=== PATIENT | female | born 1990 | race Caucasian/White ===

== ENCOUNTER 2021-03-02 12:48 | Emergency (ER) | payer MEDICAID, SELFPAY ==
--- NOTE | ~2021-03-02 | CT_ITS ---
EXAMINATION: CT CHEST WITHOUT CONTRAST CLINICAL INFORMATION: Shortness of breath. Chest tightness. COMPARISON: Chest x-ray earlier today and 04/02/2012 TECHNIQUE: Multidetector volumetric CT imaging of the chest was done. Axial MIP volume rendering provided. Sagittal and coronal reformatted images were obtained. This CT examination was performed using dose optimization techniques as appropriate, variously including the following: *Automated exposure control *Adjustment of mA and/or kV according to patient size (this includes techniques or standardized protocols for targeted exams where dose is matched to indication/reason for exam; i.e. extremities or head) *Use of iterative reconstruction technique DLP: 291 mGy-cm FINDINGS: The heart is normal in size. There is no pericardial effusion. Normal caliber thoracic aorta. No gross mediastinal lymphadenopathy appreciated on today's noncontrast imaging. No enlarged axillary lymph nodes. Central airways are patent. Lungs are well aerated. Mild biapical architectural distortion/scarring is appreciated. An approximately 3 x 4.2 cm subsolid density is noted along the posterior pleural surface of the right lower lobe, nonspecific. A 5 mm nodular density is noted abutting the right major fissure, nonspecific but statistically a node. No pleural effusion or pneumothorax. Visualized portions of the upper abdomen demonstrate splenomegaly with the spleen measuring approximately 14 cm in maximum AP dimension. No acute osseous abnormality. CT/CT chest wo con IMPRESSION: 1. An approximately 3 x 4.2 cm subsolid density is noted along the posterior pleural surface of the right lower lobe. This is a nonspecific finding. Differential includes, but is not limited to, pulmonary infarction and pulmonary hemorrhage. This may also represent a localized infectious process. Clinical correlation is recommended. Follow-up imaging suggested status post treatment to ensure resolution. If finding persist, PET/CT may be warranted. 2. Mild splenomegaly, incompletely visualized. Fleischner guidelines were followed.
--- NOTE | ~2021-03-02 | XR_ITS ---
EXAMINATION: XR CHEST CLINICAL INFORMATION: Shortness of breath COMPARISON: Previous chest x-ray most recent March 2012 TECHNIQUE: Frontal view of the chest was obtained. FINDINGS: The cardiac and mediastinal contours are normal. The lung volumes are low. There are increased hilar markings. This may be related to low lung volumes. The lungs are otherwise clear. There is no pleural effusion or pneumothorax. Bony structures are unremarkable. XR/XR chest 1V IMPRESSION: Low lung volumes.
[2021-03-02 13:56] VITALS: BP 112/78; PULSE 97; RESP 18; TEMP 36.5; O2SAT 100; BMI 33.0
--- NOTE | 2021-03-02 14:03 | ECG_ITS ---
Test Reason : sob Blood Pressure : / mmHG Vent. Rate : 094 BPM Atrial Rate : 094 BPM P-R Int : 126 ms QRS Dur : 084 ms QT Int : 364 ms P-R-T Axes : 053 049 037 degrees QTc Int : 455 ms Normal sinus rhythm Normal ECG When compared with ECG of 08-SEP-2010 20:08, No significant change was found Referred By: Generic ED Physician Electronically Signed By:Nadeem Vaughn
[2021-03-02 14:37] LABS: MANUAL DIFF FLAG NO
[2021-03-02 14:39] LABS: Basophils Percent Auto 0.3 % (0-2); Eosinophils Percent Auto 0.3 % (0-4); Hematocrit 31.4 % (37.0-47.0); Hemoglobin 11.1 g/dl (12.0-16.0); Imm Gran Abs Auto 0.11 X10*3/uL (0.00-0.03); Imm Gran Pct Auto 1.2 % (0.0-0.4); Lymphocytes Absolute Auto 2.1 X10*3/uL (1.2-4.9); Lymphocytes Percent Auto 23.4 % (20-40); Mean Corpuscular HGB Conc 35.4 g/dl (31.0-35.0); Mean Corpuscular Hemoglobin 30.1 pg (27.0-33.0); Mean Corpuscular Volume 85.1 fL (80.0-98.0); Mean Platelet Volume 9.9 fL (9.4-12.3); Monocytes Absolute Auto 0.5 X10*3/uL (0.1-1.2); Monocytes Percent Auto 5.7 % (2-11); Neutrophils Absolute Auto 6.2 x10*3/uL (2.0-8.3); Neutrophils Percent Auto 69.1 % (45-73); Platelet Count 239 X10*3/uL (160-400); Red Blood Count 3.69 X10*6/uL (4.20-5.50); Red Cell Distribution Width 17.5 % (11.0-16.0); White Blood Count 8.9 X10*3/uL (4.8-10.8)
[2021-03-02 14:50] LABS: COVID-19 Test Positive (Negative)
[2021-03-02 14:53] LABS: Anion Gap 11 (12-20); Blood Urea Nitrogen 10 mg/dL (9-16); Calcium 9.4 mg/dL (8.4-10.2); Carbon Dioxide 24 mmol/L (22-29); Chloride 111 mmol/L (96-108); Creatinine Clr Calc Pharmacy 115.3; Estimated Glomerular Filt Rate > 60; Glucose Random 91 mg/dL (60-115); Sodium 142 mmol/L (135-145)
--- NOTE | 2021-03-02 18:26 | ED_ITS ---
HPI - URI/Sore Throat General Chief Complaint: Upper Respiratory Symptoms Stated Complaint: COVID+ dif breathing Time Seen by Provider: 03/02/21 15:48 Source: patient Mode of arrival: ambulatory Limitations: no limitations History of Present Illness HPI Narrative: 30-year-old female on vaccinated for COVID with a history of reactive airway disease here with reports of chest tightness, cough and shortness of breath. Patient tells me 1 week ago she started to develop symptoms of COVID. She tested on Monday positive. Over the weekend she reports of chest tightness and cough with feeling like she can not catch her breath. She has been using her albuterol MDI with continued symptoms. Her cough is nonproductive. She has not had a fever since Monday. No leg swelling or pain. No vomiting, diarrhea or abdominal pain. Related Data Previous Rx's Medication Instructions Recorded doxycycline monohydrate 100 mg 100 mg PO BID #20 tab 03/02/21 tablet Allergies Allergy/AdvReac Type Severity Reaction Status Date / Time pomegranate Allergy Mild HIVES, Unverified 10/31/19 18:10 ITCHY Review of Systems Review of Systems: Yes all other systems are reviewed and are negative Constitutional: Constitutional: Reports no additional constitutional complaints, Denies body ache(s), Denies chills, Denies fever(s), Denies headache(s) and Denies weakness Eyes: Eyes: Reports no additional eye complaints and Denies change in vision ENT: Reports system reviewed and no additional complaints, except as documented, Denies dizziness, Denies headache(s), Denies nasal congestion, Denies nasal discharge and Denies neck pain Cardiovascular: Cardiovascular: Reports no additional cardiovascular complaints, Reports chest pain, Denies leg edema and Reports dyspnea Respiratory: Respiratory: Reports no additional respiratory complaints, Reports cough and Reports dyspnea Gastrointestinal: Gastrointestinal: Reports no additional gastrointestinal complaints, Denies abdominal pain, Denies diarrhea, Denies nausea and Denies vomiting Genitourinary: Genitourinary: Reports no additional female genitourinary complaints and Denies urinary incontinence Musculoskeletal: Musculoskeletal: Reports no additional musculoskeletal complaints, Denies back pain, Denies arthralgias, Denies joint swelling, Denies neck pain, Denies numbness and Denies tingling Integumentary/Breasts: Skin/Breast: Reports system reviewed and no additional complaints, except as docu and Denies rash Neurologic: Reports system reviewed and no additional complaints, except as documented, Denies Abnormal speech present, Denies dizziness, Denies headache(s), Denies numbness, Denies tingling and Denies weakness PMFSH Past Medical History Attestation statement: The following information was validated with the patient. Source: old records reviewed and nursing notes reviewed Social History Social History Advance Directives: No Advance Directives Information Provided: No Patient : No Physical Exam Vital Signs: Vital Signs: Last Vital Signs Temp 97.3 F 03/02/21 18:41 Pulse 96 03/02/21 20:38 Resp 18 03/02/21 20:38 BP 114/80 03/02/21 20:38 Pulse Ox 100 03/02/21 20:38 BMI result Body Mass Index 33.0 Const: General: cooperative, healthy appearing, comfortable and no acute distress Orientation/consciousness: patient oriented x3 Limitations: no limitations HENMT: Head: Yes normal to inspection Ears: hearing grossly normal bilaterally and TM's normal bilaterally General nose exam: Normal external nose present Face and sinus: Yes normal facial exam Mouth: Normal oral and palatal mucosa present Throat: Yes posterior oropharynx normal, Yes tonsils normal and Yes uvula midline Eyes: General: appearance normal, both eyes and all related structures Pupils: Equal, round and reactive pupils present Neck: Neck: Yes normal visual inspection Chest: Chest palpation & inspection: normal inspection of the chest Resp: Effort & Inspection: normal respiratory effort Auscultation: clear to auscultation bilaterally Cardio: Rate: regular rate Rhythm: regular rhythm Peripheral pulses: Peripheral pulses 2+ throughout GI: Inspection: Yes normal to inspection Palpation (GI): Soft to palpation and nontender Auscultation: normal bowel sounds Back/Spine/Pelvis: Thoracic/Lumbar Spine: thoracic and lumbar spine normal to inspection Skin: General skin exam: no rashes or lesions noted Neuro: General: patient oriented x3, no focal motor deficits and normal sensat ion to monofilament Cranial nerves: Yes Equal, round and reactive pupils present Cognition (Neuro): normal cognition Speech: No Abnormal speech present Gait exam (Neuro): Normal gait present Motor exam (neuro): 5/5 motor strength present throughout Extrem: General: Yes normal to inspection, Yes no pedal edema and Yes no calf tenderness Course Course Course Narrative: 30-year-old female here with reports of chest tightness, cough and shortness of breath for several days in the setting of being diagnosed with COVID last Monday. On arrival the patient is well appearing. Her lungs are clear. Her vitals are stable. Will check chest x-ray, EKG, lab 2145-EKG, lab work, chest x-ray are unremarkable. D-dimer is negative. Patient has some mild tachypnea with talking. Will check CT chest. CT chest shows -An approximately 3 x 4.2 cm subsolid density is noted along the posterior pleural surface of the right lower lobe.?This is a nonspecific finding. Differential includes, but is not limited to, pulmonary infarction and pulmonary hemorrhage. This may also represent a localized infectious process. Clinical correlation is recommended. Follow-up imaging suggested status post treatment to ensure resolution. If finding persist, PET/CT may be warranted. Patient is healthy with only underlying history of asthma. No other medical history. She denies any hemoptysis with no underlying history of cystic fibrosis. Less likely pulmonary hemorrhage Less likely PE with perc score 0. Consider underlying infectious process due to patient being diagnosed with COVID. Case was discussed with Dr. Figueroa. Patient has no hypoxia. She has some mild tachypnea with talking but otherwise appears well. Will start her on dose of oral antibiotics. Recommend she follow up with pulmonology outpatient and we discussed that she will need a repeat CT scan when she completes her antibiotics. Reviewed worrisome signs and symptoms of when to return to the emergency department. Comfortable discharge home. MDM - URI/Sore Throat MDM Narrative Medical decision making narrative: PE, pneumonia Medical Records Attestation: I reviewed the patient's medical records. Lab Data Attestation: I reviewed the patient's lab results. Result diagrams: 03/02/21 14:31 03/02/21 14:31 Labs: Lab Results 03/02/21 03/02/21 03/02/21 Range/Units 14:31 14:31 14:32 WBC 8.9 (4.8-10.8) X10*3/uL RBC 3.69 L (4.20-5.50) X10*6/uL Hgb 11.1 L (12.0-16.0) g/dl Hct 31.4 L (37.0-47.0) % MCV 85.1 (80.0-98.0) fL MCH 30.1 (27.0-33.0) pg MCHC 35.4 H (31.0-35.0) g/dl RDW 17.5 H (11.0-16.0) % Plt Count 239 (160-400) X10*3/uL MPV 9.9 (9.4-12.3) fL Immature Gran % (Auto) 1.2 H (0.0-0.4) % Neut % (Auto) 69.1 (45-73) % Lymph % (Auto) 23.4 (20-40) % Carbon % (Auto) 5.7 (2-11) % Eos % (Auto) 0.3 (0-4) % Baso % (Auto) 0.3 (0-2) % Lymph # (Auto) 2.1 (1.2-4.9) X10*3/uL Carbon # (Auto) 0.5 (0.1-1.2) X10*3/uL Eos # (Auto) 0.0 (0.0-0.4) X10*3/uL Baso # (Auto) 0.0 (0.0-0.2) X10*3/uL Abs Immat Gran (auto) 0.11 H (0.00-0.03) X10*3/uL Absolute Neuts (auto) 6.2 (2.0-8.3) x10*3/uL Absolute Nucleated RBC 0.000 (0.0-0.012) X10*3/uL Nucleated RBC % (auto) 0.0 (0.0-0.2) /100WBC PT (9.9-13.0) SEC INR (0.9-1.1) D-Dimer High Sensitivty NG/ML Sodium 142 (135-145) mmol/L Potassium 4.0 (3.3-5.1) mmol/L Chloride 111 H (96-108) mmol/L Carbon Dioxide 24 (22-29) mmol/L Anion Gap 11 L (12-20) BUN 10 (9-16) mg/dL Creatinine 0.68 (0.5-1.4) mg/dL Estim Creat Clear Calc 115.3 Estimated GFR > 60 Random Glucose 91 (60-115) mg/dL Calcium 9.4 (8.4-10.2) mg/dL Urine Test (NEGATIVE) COVID-19 (BEATRIZ) Positive A (Negative) COVID-19 Clin Com See Note 03/02/21 03/02/21 Range/Units 18:35 19:14 WBC (4.8-10.8) X10*3/uL RBC (4.20-5.50) X10*6/uL Hgb (12.0-16.0) g/dl Hct (37.0-47.0) % MCV (80.0-98.0) fL MCH (27.0-33.0) pg MCHC (31.0-35.0) g/dl RDW (11.0-16.0) % Plt Count (160-400) X10*3/uL MPV (9.4-12.3) fL Immature Gran % (Auto) (0.0-0.4) % Neut % (Auto) (45-73) % Lymph % (Auto) (20-40) % Carbon % (Auto) (2-11) % Eos % (Auto) (0-4) % Baso % (Auto) (0-2) % Lymph # (Auto) (1.2-4.9) X10*3/uL Carbon # (Auto) (0.1-1.2) X10*3/uL Eos # (Auto) (0.0-0.4) X10*3/uL Baso # (Auto) (0.0-0.2) X10*3/uL Abs Immat Gran (auto) (0.00-0.03) X10*3/uL Absolute Neuts (auto) (2.0-8.3) x10*3/uL Absolute Nucleated RBC (0.0-0.012) X10*3/uL Nucleated RBC % (auto) (0.0-0.2) /100WBC PT 11.6 (9.9-13.0) SEC INR 1.0 (0.9-1.1) D-Dimer High Sensitivty < 150 NG/ML Sodium (135-145) mmol/L Potassium (3.3-5.1) mmol/L Chloride (96-108) mmol/L Carbon Dioxide (22-29) mmol/L Anion Gap (12-20) BUN (9-16) mg/dL Creatinine (0.5-1.4) mg/dL Estim Creat Clear Calc Estimated GFR Random Glucose (60-115) mg/dL Calcium (8.4-10.2) mg/dL Urine Test NEGATIVE (NEGATIVE) COVID-19 (BEATRIZ) (Negative) COVID-19 Clin Com Imaging Data Chest x-ray: Attestation: I personally reviewed and interpreted this imaging study as follows: Radiologist's impression: [address] [address] XRay Report Signed Patient: Ladan Chavis MR#: [id number] : 1990 Acct:[id number] Age/Sex: 30 / F ADM Date: 03/02/21 Loc: .ED Attending Dr: Ordering Physician: Generic ED Physician Date of Service: 03/02/21 Procedure(s): XR chest 1V Accession Number(s): [id number] cc: Generic ED Physician~ EXAMINATION: XR CHEST CLINICAL INFORMATION: Shortness of breath COMPARISON: Previous chest x-ray most recent March 2012 TECHNIQUE: Frontal view of the chest was obtained. FINDINGS: The cardiac and mediastinal contours are normal. The lung volumes are low. There are increased hilar markings. This may be related to low lung volumes. The lungs are otherwise clear. There is no pleural effusion or pneumothorax. Bony structures are unremarkable. XR/XR chest 1V IMPRESSION: Low lung volumes. ? CT scan - chest: Attestation: I personally reviewed and interpreted this imaging study as follows: Radiologist's impression: MPRESSION: 1.? An approximately 3 x 4.2 cm subsolid density is noted along the posterior pleural surface of the right lower lobe. This is a nonspecific finding. Differential includes, but is not limited to, pulmonary infarction and pulmonary hemorrhage. This may also represent a localized infectious process. Clinical correlation is recommended. Follow-up imaging suggested status post treatment to ensure resolution. If finding persist, PET/CT may be warranted. 2.? Mild splenomegaly, incompletely visualized. ? ECG Data Attestation: I personally reviewed and interpreted this ECG as follows: ECG interpretation date: 03/02/21 ECG interpretation time: 14:21 Interpretation: Normal sinus rhythm with a rate of 94, normal VA, normal QRS Discharge Plan Discharge Clinical Impression: Pneumonia, COVID-19 Patient Disposition: Home, Self-Care Instructions: Pneumonia (ED), COVID-19 (Coronavirus Disease 2019) (ED) Additional Instructions: Your CT scan shows a nonspecific finding on the right lung. This is likely pn eumonia so we are treating you with a course of antibiotics. However we recommend that you following up with the horticultural nursery assistant for re-evaluation and repeat CT scan to make sure this is improved. Return to the emergency department for coughing up blood, increasing difficulty breathing, low oxygen levels at home Buy a pulse oximeter on [employer] and watch her oxygen numbers at home and return if her number is less than 90% Alternate Motrin and Tylenol if able as needed for pain or fever Continue your inhaler Prescriptions: New doxycycline monohydrate 100 mg tablet 100 mg PO BID Qty: 20 RF: 0 Referrals: Physician,Nonstaff [Primary Care Provider] - 2 days César Fowler MD [Physician] - 1 week
[2021-03-02 18:41] VITALS: BP 119/69; PULSE 97; RESP 18; TEMP 36.3; O2SAT 99
[2021-03-02 18:52] LABS: Prothrombin Time 11.6 SEC (9.9-13.0)
[2021-03-02 18:54] LABS: D Dimer High Sensitivity < 150 NG/ML
[2021-03-02 19:26] LABS: UPreg QC Valid YES; Urine Pregnancy NEGATIVE (NEGATIVE)
[2021-03-02 20:38] VITALS: BP 114/80; PULSE 96; RESP 18; O2SAT 100
== END 2021-03-02 21:59 | disposition home or self-care (01) ==
PROVIDERS: Nurse Practitioner Family; Emergency Provider Emergency Medicine
DX: U07.1 COVID-19 (principal); J12.82 Pneumonia due to coronavirus disease 2019
CPT/HCPCS: 36415; 71045; 71250; 80048; 81025; 85025; 85379; 85610; 87635; 93005; 99284